=== PATIENT | male | born 1960 | race African-American/Black ===

== ENCOUNTER 2020-11-25 19:54 | Emergency (ER) | payer OTHER ==
[2020-11-25] MEDS ORDERED: ACETAMINOPHEN 325 MG TABLET ONE (21:01)
[2020-11-25 23:03] LABS: Urine Blood 2+ (Negative); Urine Glucose Negative (Negative); Urine Protein Trace (Negative)
[2020-11-25 23:10] LABS: Absolute Lymphocytes (CBC) 1.1 K/uL (0.7-4.9); Basophils % 0.4 % (0-1.3); Hematocrit 40.3 % (39.6-49.0); Lymphocytes % 9.9 % (15.3-44.8); MPV 8.4 fL (7.6-11.3); RBC Red Blood Cell Count 4.08 M/uL (4.33-5.43)
[2020-11-25 23:30] LABS: Albumin 3.5 g/dL (3.4-5.0); Bilirubin Direct 0.2 mg/dL (0-0.2); Bilirubin Total 0.8 mg/dL (0.2-1.0); Potassium 3.4 mmol/L (3.5-5.1); Protein, Total 7.9 g/dL (6.4-8.2)
[2020-11-26 00:35] LABS: Blood Morphology Comment NOTED (NOT SEEN); Ovalocytes 3+; Platelet Estimate ADEQ
--- NOTE | 2020-11-26 00:39 | ER ---
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 Coronavirus screen: Client denies travel out of the [place] in the last 14 days. At this time, the client does not indicate any symptoms associated with coronavirus-19. Risk Assessment: Do you want to hurt yourself or someone else? Patient reports no desire to harm self or others. Onset of symptoms was November 25, 2020. 20:26 Method Of Arrival: Ambulatory lp1 20:26 Acuity: HEATHER 3 lp1 20:29 Ebola Screen: No symptoms or risks identified at this time. Initial Sepsis Screen: Does lp1 the patient meet any 2 criteria? No. Patient's initial sepsis screen is negative. Does the patient have a suspected source of infection? No. Patient's initial sepsis screen is negative. Historical: - Allergies: 20:29 No Known Allergies; lp1 - Home Meds: 20:29 citalopram oral [Active]; Ambien Oral [Active]; lp1 - PMHx: 20:29 None; lp1 - PSHx: 20:29 None; lp1 - Immunization history:: Adult Immunizations up to date. - Social history:: Smoking status: Patient denies any tobacco usage or history of. Patient/guardian denies using alcohol, street drugs, The patient lives with family. - Family history:: not pertinent. Screenin:32 Abuse screen: Denies threats or abuse. Denies injuries from another. Nutritional lp1 screening: No deficits noted. Tuberculosis screening: No symptoms or risk factors identified. Fall Risk None identified. Assessment: 23:00 General: Appears in no apparent distress. uncomfortable, Behavior is calm, cooperative, rr5 appropriate for age. 23:00 Pain: Complains of pain in head Pain currently is 4 out of 10 on a pain scale. Quality rr5 of pain is described as aching, Pain began gradually, Is intermittent. Neuro: Level of Consciousness is awake, alert, obeys commands, Oriented to person, place, time. Cardiovascular: Capillary refill < 3 seconds Patient's skin is warm and dry. Respiratory: Airway is patent Respiratory effort is even, unlabored, Respiratory pattern is regular, symmetrical. GI: Patient currently denies nausea, vomiting. : No signs and/or symptoms were reported regarding the genitourinary system. EENT: No signs and/or symptoms were reported regarding the EENT system. Derm: Skin is intact, is healthy with good turgor, Skin temperature is warm. Musculoskeletal: Capillary refill < 3 seconds. 11/26 00:10 Reassessment: Patient appears in no apparent distress at this time. Patient is alert, rr5 oriented x 3, equal unlabored respirations, skin warm/dry/pink. Patient states feeling better. Patient states symptoms have improved. 00:54 Reassessment: Patient appears in no apparent distress at this time. Patient is alert, rr5 oriented x 3, equal unlabored respirations, skin warm/dry/pink. discharge instruction given and explained without complaints made. Vital Signs: 11/25 20:29 BP 148 / 89; Pulse 75; Resp 18; Temp 100.7(O); Pulse Ox 99% on R/A; Weight 90.72 kg lp1 (R); Height 6 ft. 5 in. (195.58 cm); Pain 4/10; 23:14 BP 141 / 85; Pulse 70; Resp 16; Pulse Ox 99% ; rr5 23:50 BP 133 / 75; Pulse 85; Resp 16; Temp 98.5; Pulse Ox 99% ; rr5 11/26 00:54 BP 121 / 70; Pulse 80; Resp 19; Pulse Ox 99% ; rr5 11/25 20:29 Body Mass Index 23.72 (90.72 kg, 195.58 cm) lp1 ED Course: 11/25 19:55 Patient arrived in ED. am2 19:55 Juan Todd DO is Private Physician. am2 20:29 Triage completed. lp1 20:29 Arm band placed on. lp1 22:50 Pradeep Grullon MD is Attending Physician. ma2 22:53 Ric Nobles, RN is Primary Nurse. rr5 23:02 Inserted saline lock: 20 gauge in right forearm, using aseptic technique. Blood rr5 collected. 23:07 Patient has correct armband on for positive identification. Bed in low position. Call rr5 light in reach. Pulse ox on. NIBP on. 11/26 00:54 No provider procedures requiring assistance completed. IV discontinued, intact, rr5 bleeding controlled, No redness/swelling at site. Pressure dressing applied. Administered Medications: 11/25 20:43 Drug: Tylenol 650 mg Route: PO; lp1 21:40 Follow up: Response: No adverse reaction; Temperature is decreased rr5 23:03 Drug: NS 0.9% 1000 ml Route: IV; Rate: 1 bolus; Site: right forearm; ea 11/26 00:23 Follow up: Response: No adverse reaction; IV Status: Completed infusion; IV Intake: rr5 1000ml Intake: 00:23 IV: 1000ml; Total: 1000ml. rr5 Outcome: 00:38 Discharge ordered by . ma2 00:54 Discharged to home via ambulance. rr5 00:54 Condition: stable 00:54 Discharge instructions given to patient, Instructed on discharge instructions, follow up and referral plans. medication usage, Demonstrated understanding of instructions, follow-up care, medications, Prescriptions given X 1. 00:55 Patient left the ED. rr5 Signatures: Lesia Gasca RN RN lp1 Lulu Liriano am2 Manjula Barrientos RN RN ea Alzahri, Mohammad, MD MD [facility] Ric Nobles, RN RN rr5 Corrections: (The following items were deleted from the chart) 11/25 20:35 20:26 Chief complaint: Patient states: Reports getting overheated on , worked lp1 outside mowing lawns and did not take many breaks; stated having headaches, nausea; Reports continued headaches today; denies vomiting, vision changes lp1 20:35 20:29 BP 148 / 89; Pulse 75bpm; Resp 18bpm; Pulse Ox 99% RA; Temp 100.1F Oral; 90.72 kg lp1 Reported; Height 6 ft. 5 in.; BMI: 23.7; Pain 4/10; lp1
--- NOTE | 2020-11-26 00:39 | EDPHYS ---
Physician Documentation [facility] Name: Tapan Doshi Age: 60 yrs Sex: Male : 1960 Arrival Date: 11/25/2020 Time: 19:55 Bed 7 Private MD: Juan Todd H ED Physician Pradeep Grullon HPI: 11/26 00:37 This 60 yrs old Black Male presents to ER via Ambulatory with complaints of heat ma2 exhaustion. 00:37 Onset: The symptoms/episode began/occurred gradually, 2 day(s) ago. Severity of ma2 symptoms: At their worst the symptoms were mild in the emergency department the symptoms are unchanged. The patient has not experienced similar symptoms in the past. Historical: - Allergies: 11/25 20:29 No Known Allergies; lp1 - Home Meds: 20:29 citalopram oral [Active]; Ambien Oral [Active]; lp1 - PMHx: 20:29 None; lp1 - PSHx: 20:29 None; lp1 - Immunization history:: Adult Immunizations up to date. - Social history:: Smoking status: Patient denies any tobacco usage or history of. Patient/guardian denies using alcohol, street drugs, The patient lives with family. - Family history:: not pertinent. ROS: 11/26 00:37 Constitutional: Negative for fever, chills, and weight loss. ma2 All other systems are negative. Exam: 00:37 Constitutional: This is a well developed, well nourished patient who is awake, alert, ma2 and in no acute distress. Head/Face: Normocephalic, atraumatic. Eyes: Pupils equal round and reactive to light, extra-ocular motions intact. Lids and lashes normal. Conjunctiva and sclera are non-icteric and not injected. Cornea within normal limits. Periorbital areas with no swelling, redness, or edema. ENT: Nares patent. No nasal discharge, no septal abnormalities noted. Tympanic membranes are normal and external auditory canals are clear. Oropharynx with no redness, swelling, or masses, exudates, or evidence of obstruction, uvula midline. Mucous membranes moist. Neck: Trachea midline, no thyromegaly or masses palpated, and no cervical lymphadenopathy. Supple, full range of motion without nuchal rigidity, or vertebral point tenderness. No Meningismus. Chest/axilla: Normal chest wall appearance and motion. Nontender with no deformity. No lesions are appreciated. Cardiovascular: Regular rate and rhythm with a normal S1 and S2. No gallops, murmurs, or rubs. Normal PMI, no JVD. No pulse deficits. Respiratory: Lungs have equal breath sounds bilaterally, clear to auscultation and percussion. No rales, rhonchi or wheezes noted. No increased work of breathing, no retractions or nasal flaring. Abdomen/GI: Soft, non-tender, with normal bowel sounds. No distension or tympany. No guarding or rebound. No evidence of tenderness throughout. Skin: Warm, dry with normal turgor. Normal color with no rashes, no lesions, and no evidence of cellulitis. MS/ Extremity: Pulses equal, no cyanosis. Neurovascular intact. Full, normal range of motion. Neuro: Awake and alert, GCS 15, oriented to person, place, time, and situation. Cranial nerves II-XII grossly intact. Motor strength 5/5 in all extremities. Sensory grossly intact. Cerebellar exam normal. Normal gait. Vital Signs: 11/25 20:29 BP 148 / 89; Pulse 75; Resp 18; Temp 100.7(O); Pulse Ox 99% on R/A; Weight 90.72 kg lp1 (R); Height 6 ft. 5 in. (195.58 cm); Pain 4/10; 23:14 BP 141 / 85; Pulse 70; Resp 16; Pulse Ox 99% ; rr5 23:50 BP 133 / 75; Pulse 85; Resp 16; Temp 98.5; Pulse Ox 99% ; rr5 11/26 00:54 BP 121 / 70; Pulse 80; Resp 19; Pulse Ox 99% ; rr5 11/25 20:29 Body Mass Index 23.72 (90.72 kg, 195.58 cm) lp1 MDM: 11/25 22:50 Patient medically screened. ma2 11/26 00:37 Differential Diagnosis heat cramps. Data reviewed: vital signs, nurses notes. ma2 Counseling: I had a detailed discussion with the patient and/or guardian regarding: the historical points, exam findings, and any diagnostic results supporting the discharge/admit diagnosis, the presence of at least one elevated blood pressure reading (>120/80) during this emergency department visit, the need for outpatient follow up. Response to treatment: the patient's symptoms have markedly improved after treatment. 11/25 22:52 Order name: Basic Metabolic Panel; Complete Time: 23:32 ma2 11/25 22:52 Order name: CBC with Diff; Complete Time: 00:36 ma2 11/25 22:52 Order name: Hepatic Function; Complete Time: 00:36 dc2 11/25 22:52 Order name: Lipase; Complete Time: 00:36 dc2 11/25 23:03 Order name: Urine Dipstick-Ancillary; Complete Time: 00:36 EDMS 11/25 20:40 Order name: Urine Dipstick-Ancillary (obtain specimen); Complete Time: 23:04 kb 11/25 22:52 Order name: IV Saline Lock; Complete Time: 23:03 ma2 11/25 22:52 Order name: Labs collected and sent; Complete Time: 23:03 dc2 11/25 23:18 Order name: Manual Differential; Complete Time: 00:36 EDMS 11/25 23:19 Order name: Creatine Phosphokinase; Complete Time: 00:36 EDMS Administered Medications: 11/25 20:43 Drug: Tylenol 650 mg Route: PO; lp1 21:40 Follow up: Response: No adverse reaction; Temperature is decreased rr5 23:03 Drug: NS 0.9% 1000 ml Route: IV; Rate: 1 bolus; Site: right forearm; ea 11/26 00:23 Follow up: Response: No adverse reaction; IV Status: Completed infusion; IV Intake: rr5 1000ml Disposition: 11/26/20 00:38 Discharged to Home. Impression: Heat cramp. - Condition is Stable. - Discharge Instructions: Heat Exhaustion Information. - Prescriptions for Diclofenac Sodium 75 mg Oral Tablet Sustained Release - take 1 tablet by ORAL route 2 times per day; 30 tablet. - Medication Reconciliation Form, Thank You Letter, Antibiotic Education, Prescription Opioid Use form. - Follow up: Private Physician; When: Tomorrow; Reason: Continuance of care. Signatures: Dispatcher [facility] Flavia Ramírez, HARRIS CORDOVA-Lesia Resendez RN RN lp1 Gregorio Herrera FNP-C FNP-Opal1 Manjula Barrientos RN Pradeep Barkley ea, MD MD ma2 Ric Nobles RN RN rr5 Corrections: (The following items were deleted from the chart) 11/25 23:18 23:08 CREATINE PHOSPHOKINASE+[id number].BRZ ordered. [facility] 11/26 00:55 00:38 11/26/2020 00:38 Discharged to Home. Impression: Heat cramp. Condition is Stable. rr5 Prescriptions for Diclofenac Sodium 75 mg Oral Tablet Sustained Release - take 1 tablet by ORAL route 2 times per day; 30 tablet. and Forms are Medication Reconciliation Form, Thank You Letter, Antibiotic Education, Prescription Opioid Use. Follow up: Private Physician; When: Tomorrow; Reason: Continuance of care. ma2
[2020-11-26 01:24] VITALS: O2SAT 99
[2020-11-26 01:27] VITALS: TEMP 98.5
[2020-11-26 01:28] VITALS: BP 121/70
== END 2020-11-26 00:55 | disposition home or self-care (01) ==
LOC: ER 19:54
DX: T67.2XXA Heat cramp, initial encounter (principal)
CPT/HCPCS: 36415; 80048; 80076; 81003; 82550; 83690; 85025; 96360; 99284